=== PATIENT | male | born 1945 | race Caucasian/White ===

== ENCOUNTER 2017-11-07 01:34 | Day surgery (SDC) | payer MEDICARE, OTHER ==
[~2017-11-07] VITALS: Ht 185.4 cm; Wt 115.2 kg
[~2017-11-07 01:34] MED LIST: ALLO-119 PO; ASPI-1441 PO; ATOR20TA22 PO; GEMF600T92 PO; IBUP600T22 PO; LEVO50TA86 PO; LORA-802 PO; PROB500T31 PO
[2017-11-07 06:40] VITALS: BP 151/113
[2017-11-07] MEDS ORDERED: LIDOCAINE/SOD BICARB 8.4% SYR ID ONE (07:10)
[2017-11-07] MEDS ORDERED: NORMOSOL R SOLN(*) 1000 ML BAG 1,000 ML IV PRN (07:10)
[2017-11-07] MEDS ORDERED: PROPOFOL EMUL(*) 10MG/ML 20 ML 40 ML ONE (08:08)
[2017-11-07] MEDS ORDERED: LIDOCAINE MPF 1% 5 ML VIAL ONE (08:08)
[2017-11-07] MEDS ORDERED: PROPOFOL EMUL(*) 10MG/ML 20 ML 20 ML ONE (08:29)
[2017-11-07 08:35] VITALS: BP 114/90
--- NOTE | 2017-11-07 08:42 | Short(Outpt) Discharge Summary ---
Discharge Summary Reason for Hosp/Final Diag: (1) Colon cancer screening Status: Chronic Hospital Course & Plan: Colonoscopy with polypectomy x1 completed without problems. Departure Discharge to: Home, Self Care Discharge Instructions Home Meds Reported Medications Ibuprofen (IBUPROFEN) 600 Mg Tablet, 1 TAB PO Q6H PRN for PAIN, TAB 08/13/17 Loratadine (CLARITIN) 10 Mg Tablet, 1 TAB PO QDAY PRN for PRN 08/13/17 Gemfibrozil (GEMFIBROZIL) 600 Mg Tablet, 1 TAB PO BID 08/13/17 Levothyroxine Sodium (LEVOTHYROXINE SODIUM) 50 Mcg Tablet, 1 TAB PO QDAY, TAB 08/13/17 Allopurinol (ZYLOPRIM) 300 Mg Tablet, 1 TAB PO QDAY, TAB 08/13/17 Aspirin (Aspirin Ec) 81 Mg Tablet., 1 TAB PO Q3DAYS 11/04/07 Diet: Regular Activity: As Tolerated Special Instructions: Your colonoscopy was completed without problems and your prep was excellent (Good Job!!). I removed a single polyp from your colon and it was sent to pathology for analysis. My office will call you in the next week or so and let you know what the polyp is and when your next colonoscopy should be (either 5 or 10 years) depending on the pathology results. Copies to: ANDRES RAMIREZ ; SCOTTY ALCALA MD Nov 07, 2017 08:42
[2017-11-07 08:45] VITALS: BP 120/83
[2017-11-07 09:15] VITALS: BP 131/99
[2017-11-07 09:18] VITALS: BP 129/95
== END 2017-11-07 09:45 | disposition home or self-care (01) ==
LOC: OR 01:34
PROVIDERS: ATTEND Surgery
DX: Z12.11 Encounter for screening for malignant neoplasm of colon (principal); D12.5 Benign neoplasm of sigmoid colon
CPT/HCPCS: 00811; 45385; 88305; J2001; J2704